=== PATIENT | male | born 1980 | race African-American/Black ===

== ENCOUNTER 2021-11-03 07:59 | Emergency (ER) | payer SELFPAY ==
[~2021-11-03] VITALS: Ht 180.3 cm; Wt 66.2 kg
[2021-11-03 08:01] VITALS: BP 124/80
[2021-11-03] MEDS ORDERED: CLIN-94 PO (09:25)
--- NOTE | 2021-11-03 09:26 | PHYS DOC ---
Past Medical History Past Surgical History: Other Additional Past Surgical Histo: right 5th finger, jaw surgery Smoking Status: Current Every Day Smoker Additional Information: 1 ppd Alcohol Use: None General Adult EDM: Chief Complaint: DENTAL PROBLEM HPI: HPI: Patient is a 41 year old male who presents with dental pain. Has a history of having multiple dental caries in the past. Has not had a chance to have the removed due to financial reasons. Left lower jaw pain currently. States that ibuprofen is not working. Has needed antibiotics in the past. No fever. No change in voice. No vomiting. No tongue or soft tissue swelling underneath the tongue. Review of Systems: Review of Systems: Constitutional: Denies fever or chills. [] Eyes: Denies change in visual acuity. [] HENT: Positive for left lower jaw pain inside Respiratory: Denies cough or shortness of breath. [] Cardiovascular: Denies chest pain or edema. [] GI: Denies abdominal pain, nausea, vomiting, bloody stools or diarrhea. [] : Denies dysuria. [] Musculoskeletal: Denies back pain or joint pain. [] Integument: Denies rash. [] Neurologic: Denies headache, focal weakness or sensory changes. [] Endocrine: Denies polyuria or polydipsia. [] Lymphatic: Denies swollen glands. [] Psychiatric: Denies depression or anxiety. [] Heart Score: C/O Chest Pain: No Risk Factors: Risk Factors: DM, Current or recent (<one month) smoker, HTN, HLP, family history of CAD, obesity. Risk Scores: Score 0 - 3: 2.5% MACE over next 6 weeks - Discharge Home Score 4 - 6: 20.3% MACE over next 6 weeks - Admit for Clinical Observation Score 7 - 10: 72.7% MACE over next 6 weeks - Early Invasive Strategies Current Medications: Current Medications Medications (Trade) Dose Ordered Sig/Carine Start Time Stop Time Status Last Admin Dose Admin Clindamycin HCl (Cleocin) 300 mg 1X ONCE 11/03/21 09:30 11/03/21 09:31 UNV Allergies: Allergies: Allergies Coded Allergies Type Severity Reaction Last Updated Verified No Known Drug Allergies 11/03/21 No Physical Exam: PE: Constitutional: Well developed, well nourished, no acute distress, non-toxic appearance. [] HENT: Oropharyngeal exam reveals poor dentition bilaterally, with no soft tissue swelling underneath the tongue, no glossitis, no uvulitis Eyes: PERRLA, EOMI, conjunctiva normal, no discharge. [] Neck: Normal range of motion, no tenderness, supple, no stridor. [] Cardiovascular:Heart rate regular rhythm, no murmur [] Lungs & Thorax: Bilateral breath sounds clear to auscultation [] Abdomen: Bowel sounds normal, soft, no tenderness, no masses, no pulsatile masses. [] Skin: Warm, dry, no erythema, no rash. [] Back: No tenderness, no CVA tenderness. [] Extremities: No tenderness, no cyanosis, no clubbing, ROM intact, no edema. [] Neurologic: Alert and oriented X 3, normal motor function, normal sensory function, no focal deficits noted. [] Psychologic: Affect normal, judgement normal, mood normal. [] Current Patient Data: Vital Signs: Vital Signs Date Time Temp Pulse Resp B/P (MAP) Pulse Ox O2 Delivery O2 Flow Rate FiO2 11/03/21 08:01 97.7 98 20 124/80 (95) 98 Room Air 97.7 EKG: EKG: [] Radiology/Procedures: Radiology/Procedures: [] Dragon Disclaimer: [facility] Disclaimer: This electronic medical record was generated, in whole or in part, using a voice recognition dictation system. Departure Departure Impression: Primary Impression: Dental caries Disposition: HOME / SELF CARE / HOMELESS Condition: STABLE Referrals: NO PCP (PCP) Patient Instructions: Dental Caries-Brief Scripts Clindamycin Hcl (CLINDAMYCIN HCL) 300 Mg Capsule 1 CAP PO TID for 7 Days, #21 CAP Prov: EKATERINA TORO MD 11/03/21 EKATERINA TORO MD November 03, 2021 09:26
[2021-11-03] MEDS ORDERED: CLINDAMYCIN HCL 150 MG CAPSULE. PO ONE (09:30)
== END 2021-11-03 10:23 | disposition home or self-care (01) ==
LOC: ER 07:59
DX: K02.9 Dental caries, unspecified (principal); K08.89 Other specified disorders of teeth and supporting structures; F17.200 Nicotine dependence, unspecified, uncomplicated
CPT/HCPCS: 99283